=== PATIENT | male | born 1965 | race Caucasian/White ===

== ENCOUNTER 2021-02-12 08:01 | Day surgery (SDC) | payer BC ==
[~2021-02-12] VITALS: Ht 172.7 cm; Wt 127.0 kg
[~2021-02-12 08:01] MED LIST: ADLT ASA LOW81 MG PO; ALLERGY MEDICATION; AMOXICILLIN/CL875 MG OR; AMOXICILLIN/CL875 MG PO; AUGMENTIN875TAB PO; ESCITALOPRAM OX10 MG PO; FLONASE NASAL50 MCG; LEVAQUIN500 MG PO; LOSARTAN POT50 MG PO; METO50TA52 PO; MUCINEX600 MG PO; XYZAL5 MG PO; ZYRTEC10 MG PO
[2021-02-12 10:18] VITALS: BP 113/62
== END 2021-02-12 10:15 | disposition home or self-care (01) | DRG 951 ==
LOC: ENDO 08:01
PROVIDERS: ATTEND Surgery
PROC: 0DJD8ZZ Inspection of Lower Intestinal Tract, Via Natural or Artificial Opening Endoscopic (ICD-10-PCS; principal; 2021-02-12)
DX: Z12.11 Encounter for screening for malignant neoplasm of colon (principal); K57.30 Diverticulosis of large intestine without perforation or abscess without bleeding; K64.8 Other hemorrhoids; I10 Essential (primary) hypertension; E78.5 Hyperlipidemia, unspecified; Z80.0 Family history of malignant neoplasm of digestive organs; Z86.010 Personal history of colon polyps